=== PATIENT | male | born 1970 | race Caucasian/White ===

== ENCOUNTER → 2016-08-12 | Outpatient (CLI) | payer BC ==
[~2016-08-12] MED LIST: AMOX-351 PO; HYDR-3989 PO; ONDA4TAB7 PO; PHEN15CA PO
--- NOTE | 2016-08-12 16:11 | DI ---
Indication: ITS.REASON: X89.91XA INJURY PROCEDURE: MRI KNEE RIGHT W/O CONTRAST: Encounter: Initial Comparison: None Technique: Multiplanar multisequence MR imaging of the right knee was performed without contrast. Findings: The lateral meniscus is intact. The medial meniscus shows some fraying in the anterior horn but no discrete tear. The ACL and PCL are intact. The MCL and lateral collateral ligament complex are intact. The extensor mechanism is maintained. No acute fracture. Bone marrow signal intensity is normal. The cartilage of the medial compartment shows some partial-thickness loss in the femoral condyle. Lateral compartment cartilage is maintained. Patellofemoral compartment shows partial-thickness loss in the median ridge and both facets. No joint effusion or Arias's cyst. Muscular signal intensity is within normal limits. Impression: Mild osteoarthritis with medial meniscal fraying. .
== END ==
LOC: IMA 13:36
PROVIDERS: ATTEND Orthopaedic Surgery
DX: M17.11 Unilateral primary osteoarthritis, right knee (principal); M23.311 Other meniscus derangements, anterior horn of medial meniscus, right knee